=== PATIENT | female | born 1980 | race Two or more races ===

== ENCOUNTER 2017-02-26 14:53 | Emergency (ER) | payer MEDICAID ==
[~2017-02-26] VITALS: Ht 160 cm; Wt 68.1 kg
[2017-02-26] MEDS ORDERED: ONDANSETRON 2MG/ML, 2ML IVPush ONE (15:30)
[2017-02-26] MEDS ORDERED: SODIUM CHLORIDE FLUSH 10ML SYR IVF ONE (15:30)
[2017-02-26] MEDS ORDERED: HYDROmorphone 1 MG/ML, 1ML IVPush PRN (15:30)
[2017-02-26 15:58] LABS: ASPARTATE AMINO TRANSFERASE 17 U/L (15-37); BLOOD UREA NITROGEN 17 mg/dL (7-18)
[2017-02-26] MEDS ORDERED: OMNIPAQUE 350 MG/ML, 100ML BOTTLE ONE (17:26)
[2017-02-26 17:43] VITALS: BP 111/69
== END 2017-02-26 18:16 | disposition home or self-care (01) ==
LOC: ED 16:43
DX: G89.29 Other chronic pain (principal); R10.32 Left lower quadrant pain; R07.89 Other chest pain
CPT/HCPCS: 36415; 74177; 80053; 81003; 83690; 84484; 84703; 85025; 85379; 93005; 99285; Q9967